=== PATIENT | female | born 1950 | race Caucasian/White ===

== ENCOUNTER 2023-02-01 17:24 | Emergency (ER) | payer OTHER, SELFPAY ==
[2023-02-01 17:51] VITALS: BP 151/65; PULSE 80; RESP 18; TEMP 36.9; O2SAT 96; BMI 39.0
--- NOTE | 2023-02-01 17:53 | ED.GENADULT ---
HPI - General Adult General Chief complaint: Wound/Laceration Stated complaint: bit tongue bleeding on blood thinners Time Seen by Provider: 02/01/23 18:54 Source: patient and family (Significant other) Mode of arrival: ambulatory Limitations: no limitations History of Present Illness HPI narrative: 73-year-old female on Eliquis for atrial fibrillation came in today for evaluation after biting the tip of her tongue while was eating accidentally, patient was bleeding since the morning. The bleeding appears to be stopped while she is in the emergency department. Patient declined any dizziness, CP, SOB, fever, chills or rectal bleed. Patient is up to date on her tetanus vaccine. Related Data Allergies Allergy/AdvReac Type Severity Reaction Status Date / Time Iodinated Contrast Media Allergy Unknown REDDNESS Unverified 05/23/20 14:54 [IV DYE, IODINE CONTAINING CONTRAST ] Penicillins Allergy Unknown RASH Unverified 05/23/20 14:54 Review of Systems Review of Systems: All other systems are reviewed and are negative Constitutional: Reports as per HPI and Reports no additional constitutional complaints Eyes: Reports as per HPI and Reports no additional eye complaints Reports system reviewed and no additional complaints, except as documented Cardiovascular: Reports as per HPI and Reports no additional cardiovascular complaints Respiratory: Reports as per HPI and Reports no additional respiratory complaints Gastrointestinal: Reports as per HPI and Reports no additional gastrointestinal complaints Genitourinary: Reports no additional female genitourinary complaints Musculoskeletal: Reports no additional musculoskeletal complaints Skin/Breast: Reports system reviewed and no additional complaints, except as docu Psychiatric: Reports no additional psychiatric complaints Endocrine: Reports no additional endocrine complaints Hematologic/Lymphatic: Reports no additional hematologic/lymphatic complaints Allergic/Immunologic: Reports no additional allergic/immunologic complaints Reports system reviewed and no additional complaints, except as documented and Reports Abnormal speech present [facility] Social History Social History Alcohol intake: never Smoked in Last 30 Days: No Use of substances other than those prescribed or required for medical reasons: No Advance Directives: No Advance Directives Information Provided: Yes Physical Exam ED Vital Signs: Vital Signs - 24 hr 02/01/23 17:51 02/01/23 19:45 Temperature 98.4 F Pulse Rate 80 64 Respiratory Rate 18 17 Blood Pressure 151/65 H 116/50 L Pulse Oximetry 96 95 Oxygen Delivery Method Room Air Room Air BMI result Body Mass Index 39.0 Vital signs have been reviewed as appeared to be correct. Blood pressure normal. Heart rate normal. Respiration rate normal. Temperature normal. Oxygen saturation normal. Appearance: Alert. Oriented X3. No acute distress. Head: Normal external exam. Normocephalic. Atraumatic. No Gooden signs noted. No raccoon eyes noted, tongue with less than 0.5 cm cut at the tip of the tongue, with blood clot, no active bleeding at the moment. Eyes: PERRLA. EOMI. Conjunctiva and sclera normal. Eyelids normal. ENT: TM's Normal. Pharynx normal. Uvula midline. Moist mucous membranes. No trismus noted. No drooling noted. No muffled voice noted. Neck: Normal inspection. Neck supple. FROM. No adenopathy. Thyroid Normal. No meningeal signs. No neck mass noted. CVS: Normal heart rate and rhythm. Heart sound normal. No murmurs noted. Pulses normal throughout. Respiratory: No respiratory distress. Painless inspiration. Breath sounds normal. No wheezes/rales/rhonchi noted. Chest nontender. No accessory muscle usage noted or decreased air movement noted. Abdomen: Soft and nontender. Bowel sounds normal in all 4 quadrants. No distention noted. No organomegaly noted. No visible injury noted. Back: No CVA tenderness. Full range of motion noted. Skin: Skin warm and dry. Normal skin color. Normal skin turgor. No rashes/lesions/lacerations noted. Extremities: No lower extremity edema. Extremities exhibit normal range of motion. Extremities nontender. Neuro: Oriented X 3. Cranial nerve exam: II-XII are grossly intact No motor deficit. No sensory deficit. Reflexes normal. Course Course Course Narrative: RME: 73 yold female on eliquis presents to the ED for bleeding from tip of tongue after bittting tongue by accident while eating. Bleeding has been continuos as per patient. Reevaluation(s) Reevaluation #1: Patient was observed in the emergency department for 3 hours has no active bleeding while she was in the emergency department, CBC/coags are unremarkable. I wanted to observe the patient more in the emergency department but patient is insisting to be discharged now. Time: 19:59 Medical Decision Making Differential Diagnosis Differential Diagnoses: The differential diagnosis associated with the presentation includes (Active bleeding from the laceration, hypocoagulability, severe anemia.) Admission/Observation Consideration of admission/observation: Escalation of care including admission/observation considered Lab Data MDM Lab Attestation statement: I reviewed the patient's lab results. 02/01/23 19:13 Labs: Lab Results 02/01/23 02/01/23 Range/Units 19:13 19:13 WBC 8.3 (4.8-10.8) X10*3/uL RBC 4.08 L (4.20-5.50) X10*6/uL Hgb 11.7 L (12.0-16.0) g/dl Hct 37.7 (37.0-47.0) % MCV 92.4 (80.0-98.0) fL MCH 28.7 (27.0-33.0) pg MCHC 31.0 (31.0-35.0) g/dl RDW 14.5 (11.0-16.0) % Plt Count 193 (160-400) X10*3/uL MPV 10.2 (9.4-12.3) fL Immature Gran % (Auto) 0.5 H (0.0-0.4) % Neut % (Auto) 65.9 (45-73) % Lymph % (Auto) 16.2 L (20-40) % [place] % (Auto) 14.6 H (2-11) % Eos % (Auto) 2.2 (0-4) % Baso % (Auto) 0.6 (0-2) % Lymph # (Auto) 1.3 (1.2-4.9) X10*3/uL [place] # (Auto) 1.2 (0.1-1.2) X10*3/uL Eos # (Auto) 0.2 (0.0-0.4) X10*3/uL Baso # (Auto) 0.1 (0.0-0.2) X10*3/uL Abs Immat Gran (auto) 0.04 H (0.00-0.03) X10*3/uL Absolute Neuts (auto) 5.4 (2.0-8.3) x10*3/uL Absolute Nucleated RBC 0.000 (0.0-0.012) X10*3/uL Nucleated RBC % (auto) 0.0 (0.0-0.2) /100WBC PT 16.0 H (10.0-13.1) SEC INR 1.4 H (0.9-1.1) APTT 35.3 (26.0-36.4) SEC Chronic Conditions Patient?s care impacted by: Other (On anticoagulation therapy) Discharge Plan Discharge Clinical Impression: Laceration of tongue Patient Disposition: Home, Self-Care Instructions: Laceration Without Closure (ED) Referrals: Angle Pinedo CNP [Primary Care Provider] - Interventions: ED Discharge Assessment Last Done: 02/01/23 20:06 Discharge Date/Time: 02/01/23 20:06
--- NOTE | 2023-02-01 19:10 | PC.NURSE ---
pt report that they bit tip of tongue at 1100 this morning. Pt on elaquis and has not stopped bleeding from swap[place]. Pt biting down on roll of gauze at the moment. Tech drawing coag labs. vitals stable, will cont to joaquín
--- NOTE | 2023-02-01 19:18 | PC.NURSE ---
checked gauze roll. hardly any blood was visible on roll. tongue is not visibly bleeding at this time
[2023-02-01 19:19] LABS: MANUAL DIFF FLAG NO
[2023-02-01 19:26] LABS: Basophils Absolute Auto 0.1 X10*3/uL (0.0-0.2); Basophils Percent Auto 0.6 % (0-2); Eosinophils Absolute Auto 0.2 X10*3/uL (0.0-0.4); Eosinophils Percent Auto 2.2 % (0-4); Hematocrit 37.7 % (37.0-47.0); Hemoglobin 11.7 g/dl (12.0-16.0); INTERNATIONAL NORM RATIO 1.4 (0.9-1.1); Imm Gran Abs Auto 0.04 X10*3/uL (0.00-0.03); Imm Gran Pct Auto 0.5 % (0.0-0.4); Lymphocytes Absolute Auto 1.3 X10*3/uL (1.2-4.9); Lymphocytes Percent Auto 16.2 % (20-40); Mean Corpuscular Hemoglobin 28.7 pg (27.0-33.0); Mean Corpuscular Volume 92.4 fL (80.0-98.0); Mean Platelet Volume 10.2 fL (9.4-12.3); Monocytes Absolute Auto 1.2 X10*3/uL (0.1-1.2); Monocytes Percent Auto 14.6 % (2-11); Neutrophils Absolute Auto 5.4 x10*3/uL (2.0-8.3); Neutrophils Percent Auto 65.9 % (45-73); Platelet Count 193 X10*3/uL (160-400); Red Blood Count 4.08 X10*6/uL (4.20-5.50); Red Cell Distribution Width 14.5 % (11.0-16.0); White Blood Count 8.3 X10*3/uL (4.8-10.8)
[2023-02-01 19:29] LABS: Partial Thromboplastin Time 35.3 SEC (26.0-36.4)
--- NOTE | 2023-02-01 19:39 | PC.NURSE ---
pt tongue remains not bleeding.
[2023-02-01 19:45] VITALS: BP 116/50; PULSE 64; RESP 17; O2SAT 95
== END 2023-02-01 20:06 | disposition home or self-care (01) ==
PROVIDERS: Emergency Provider Emergency Medicine; PCP Nurse Practitioner Family
DX: S01.512A Laceration without foreign body of oral cavity, initial encounter (principal); X58.XXXA Exposure to other specified factors, initial encounter; Y93.89 Activity, other specified; Y92.9 Unspecified place or not applicable; Y99.9 Unspecified external cause status; Z79.899 Other long term (current) drug therapy; Z79.01 Long term (current) use of anticoagulants
CPT/HCPCS: 36415; 85025; 85610; 85730; 99283; 99284

== ENCOUNTER 2024-05-25 15:57 | Observation (INO) | payer MEDICARE, SELFPAY ==
--- NOTE | ~2024-05-25 | CT_ITS ---
EXAMINATION: CT HEAD WITHOUT CONTRAST CLINICAL INFORMATION: Dizziness. Vision loss. COMPARISON: None available. TECHNIQUE: Contiguous axial imaging was performed from the skull base to vertex without intravenous administration of contrast. This CT examination was performed using dose optimization techniques as appropriate, variously including the following: *Automated exposure control *Adjustment of mA and/or kV according to patient size (this includes techniques or standardized protocols for targeted exams where dose is matched to indication/reason for exam; i.e. extremities or head) *Use of iterative reconstruction technique DLP: 541 mGy-cm FINDINGS: The lateral, third and fourth ventricles are normally outlined. The cortical sulci and basal cisterns are normally outlined as well. There is no acute territorial defects, hemorrhage or midline shift. The extra-axial spaces are unremarkable. Calvarium/scalp: Intact. Maxillofacial sinuses and mastoids: Clear as visualized. CT/CT head/brain wo IV con IMPRESSION: No acute intracranial pathology. Electronically signed by: Julius Gtz MD 05/26/2024 12:28 AM EDT
--- NOTE | ~2024-05-25 | US_ITS ---
EXAMINATION: US EXTRACRANIAL CAROTID DUPLEX, BILATERAL CLINICAL INFORMATION: TIA COMPARISON: None available. TECHNIQUE: Real-time ultrasound and Doppler techniques (integrating B-mode 2-D vascular images, Doppler spectral analysis and color-flow Doppler imaging) were utilized to interrogate the extracranial carotid arteries, the vertebral arteries and proximal subclavian arteries bilaterally. The degree of stenosis is determined by criteria similar to NASCET. FINDINGS: Right Side: 1. There is no atherosclerotic plaque seen in the bifurcation/proximal ICA region. 2. The common carotid artery PSV proximally is 114 cm/s and distally 107 cm/s. 3. The proximal internal carotid artery velocities are 74 cm/s systolic and 13 cm/s diastolic. 4. The proximal external carotid artery PSV is 116 cm/s. 5. The vertebral artery shows antegrade flow. 6. The subclavian artery waveforms are normal. Left Side: 1. There is mild atherosclerotic plaque seen in the bifurcation/proximal ICA region. 2. The common carotid artery PSV proximally is 118 cm/s and distally 4115 cm/s. 3. The proximal internal carotid artery velocities are 118 cm/s systolic and 26 cm/s diastolic. 4. The proximal external carotid artery PSV is 137 cm/s. 5. The vertebral artery shows antegrade flow. 6. The subclavian artery waveforms are normal. US/US carotid duplex BI IMPRESSION: 1. RIGHT: Normal right internal carotid artery without atherosclerotic plaque or hemodynamically significant stenosis. 2. LEFT: Minimal, non-hemodynamically significant stenosis of the proximal left internal carotid artery corresponding to a 0-49% stenosis by velocity criteria. Electronically signed by: Gabriella Hodgson MD 05/26/2024 02:37 PM EDT
--- NOTE | 2024-05-25 16:04 | ED_ITS ---
HPI - Eye Problem General Chief complaint: General Medical Stated complaint: loss of vision in left eye 05/24 ,fine today Time Seen by Provider: 05/25/24 23:23 Source: patient, RN notes reviewed and old records reviewed Mode of arrival: ambulatory Limitations: no limitations History of Present Illness ED Provider: Bret COPELAND Narrative: 74-year-old female with past medical history significant for chronic kidney disease, diabetes, TAVR on Eliquis, hypertension, hyperlipidemia presents for evaluation of vision loss. Patient reports that about 24 hours ago she had a sudden onset of complete vision loss in the left eye She was sitting down watching TV when this happened Patient reports that this lasted for about 10 minutes before completely resolving She saw her technical assistance consultant earlier today who diagnosed her with amaurosis fugax. Her technical assistance consultant recommend she come to the ER to be evaluated for ?mini- stroke. ? The patient complains of a mild left-sided headache Patient states that on 2 or 3 occasions over the last 2 weeks she has episodes of dizziness and ?almost passing out. ? Denies any weakness or difficulty speaking Related Data Home Medications ?Medication ?Instructions ?Recorded ?Confirmed apixaban 5 mg tablet (Eliquis) 5 mg PO BID 05/26/24 05/26/24 atorvastatin 40 mg tablet 40 mg PO Q OTHER DAY 05/26/24 05/26/24 dapagliflozin propanediol 10 mg 10 mg PO DAILY 05/26/24 05/26/24 tablet (Farxiga) glipizide 10 mg tablet, extended 20 mg PO DAILY 05/26/24 05/26/24 release 24 hr levothyroxine 100 mcg tablet 100 mcg PO DAILY 05/26/24 05/26/24 metoprolol succinate 50 mg 50 mg PO DAILY 05/26/24 05/26/24 tablet,extended release 24 hr spironolactone 50 mg tablet 50 mg PO DAILY 05/26/24 05/26/24 torsemide 20 mg tablet 40 mg PO BID 05/26/24 05/26/24 Allergies Allergy/AdvReac Type Severity Reaction Status Date / Time Iodinated Contrast Media Allergy Unknown REDDNESS Verified 05/25/24 16:10 [IV DYE, IODINE CONTAINING CONTRAST ] Penicillins Allergy Unknown RASH Verified 05/25/24 16:10 Review of Systems 2 Constitutional: Constitutional: Denies body ache(s), Denies chills, Denies fatigue, Denies fever(s), Denies frequent falls and Reports headache(s) Eyes: Eyes: Reports loss of vision (Resolved) ENT: Reports dizziness, Reports headache(s) and Denies disequilibrium Cardiovascular: Cardiovascular: Denies chest pain, Denies syncope and Denies dyspnea Respiratory: Respiratory: Denies cough and Denies dyspnea Gastrointestinal: Gastrointestinal: Denies abdominal pain, Denies nausea and Denies vomiting Musculoskeletal: Musculoskeletal: Denies back pain, Denies numbness and Denies tingling Integumentary/Breasts: Skin/Breast: Denies rash Neurologic: Reports dizziness, Denies syncope, Denies frequent falls, Reports headache(s), Denies focal weakness, Reports loss of vision (Resolved), Denies numbness, Denies tingling, Denies paresthesias and Denies disequilibrium Psychiatric: Psychiatric: Denies anxiety Endocrine: Endocrine: Denies fatigue PMFSH Social History Social History Alcohol intake: never Smoked in Last 30 Days: No Use of substances other than those prescribed or required for medical reasons: No Advance Directives: Yes Advance Directives Information Provided: No Advance Directives on File: No Do you have a plan to hurt others: No Plan Physical Exam 2 Vital Signs: Vital Signs: Last Vital Signs Temp 97.8 F 05/26/24 00:08 Pulse 69 05/26/24 00:08 Resp 18 05/26/24 00:08 BP 129/55 L 05/26/24 00:08 Pulse Ox 96 05/26/24 00:08 O2 Del Method Room Air 05/26/24 00:08 BMI result Body Mass Index 42.3 Const: General: healthy appearing, comfortable, no acute distress, alert and awake Nutritional Appearance: well nourished Orientation/consciousness: p atient oriented x3 HEENT: Head: Yes normocephalic and Yes atraumatic Eyes: Eyelids: Yes eyelids normal Conjunctivae: conjunctivae normal S clerae: sclerae normal Corneas: corneas normal Pupils: Equal, round and reactive pupils present EOM: EOMs intact bilaterally Neck: Neck: Yes full ROM Resp: Effort & Inspection: normal respiratory effort, able to speak in complete sentences and not labored Cardio: Rate: regular rate Rhythm: regular rhythm GI: Inspection: No distended Palpation (GI): Soft to palpation, not firm, nontender, no guarding and not rigid Skin: General skin exam: elasticity normal Neuro: General: patient oriented x3 Cranial nerves: Yes CN's II-XII intact bilaterally, Yes Equal, round and reactive pupils present and Yes Bilaterally intact EOM present Cognition (Neuro): normal cognition NIH Stroke Scale Time: 00:08 Level of Consciousness: Alert Level of Consciousness Questions: Answers both questions correctly Level of Consciousness Commands: Performs both tasks correctly Best Gaze: Normal Visual: No visual loss Facial Palsy: Normal Motor Arm (Right): No drift Motor Arm (Left): No drift Motor Leg (Right): No drift Motor Leg (Left): No drift Limb Ataxia: Absent Sensory: Normal Best Language: No aphasia Dysarthia: Normal Extinction and Inattention: No abnormality Score: 0 Course Course Course Narrative: This is a Rapid Medical Examination (RME) performed by Lynda Mann PA-C in triage. Full HPI, ROS, assessment and treatment plan per primary provider in the Main ED. 74-year-old female with history of TAVR, afib on Eliquis, HTN, who presents to the ER for evaluation of transient painless left sided vision loss that occurred yesterday and lasted about 10 minutes. Developed headache afterward. Patient was seen by an eye doctor today and diagnosed with amaurosis fugax. Goes to the chiropractor and had unsteady gait afterward, almost walked into the car 2 weeks ago. reports ongoing balance issues which is new. PCP told her to come in and r/o mini-stroke. Plan: pre-medicate for CTA head/neck, labs Medical Decision Making Medical Decision Making MDM Narrative: 74-year-old male with past medical history as documented above presents for evaluation of left-sided vision loss. This was over 24 hours ago. She saw her technical assistance consultant today who did a complete eye exam and found no structural abnormalities. At this time most likely diagnosis is a TIA as she currently has no deficits. I discussed with Neurology, Dr. Rosenthal who recommends no angiography at this time. He would like the patient admitted and he will evaluate the patient in the morning. I will get a dry CT scan of the brain to evaluate for large mass or large infarct/hemorrhage. The patient is already on Eliquis for her aortic valve repair Differential Diagnosis Differential Diagnoses: The differential diagnosis associated with the presentation includes Amaurosis fugax TIA CVA Acute headache Retinal detachment Consult Healthcare Provider Management of the patient was discussed with: Hospitalist and Medical Research Scientist Discussed with Neurology, Dr. Rosenthal. He recommends no angiography right now, he would like the patient admitted and he will evaluate the patient in the morning. Likely carotid ultrasound in the morning. Lab Data MDM Lab Attestation statement: I reviewed the patient's lab results. No leukocytosis or anemia. Normal platelet count. No significant electrolyte abnormalities. Patient's BUN and creatinine are elevated, her BUN is 66 and creatinine of 1.99 are consistent with her known diagnosis of stage IV kidney disease. Diabetic with a sugar glucose of 168. There is no evidence of DKA 05/25/24 16:21 05/25/24 16:21 Labs: Lab Results 05/25/24 Range/Units 16:21 WBC 6.6 (4.8-10.8) X10*3/uL RBC 4.52 (4.20-5.50) X10*6/uL Hgb 13.5 (12.0-16.0) g/dl Hct 42.5 (37.0-47.0) % MCV 94.0 (80.0-98.0) fL MCH 29.9 (27.0-33.0) pg MCHC 31.8 (31.0-35.0) g/dl RDW 14.7 (11.0-16.0) % Plt Count 165 (160-400) X10*3/uL MPV 10.0 (9.4-12.3) fL Immature Gran % (Auto) 0.3 (0.0-0.4) % Neut % (Auto) 65.3 (45-73) % Lymph % (Auto) 20.4 (20-40) % [place] % (Auto) 11.9 H (2-11) % Eos % (Auto) 1.5 (0-4) % Baso % (Auto) 0.6 (0-2) % Lymph # (Auto) 1.3 (1.2-4.9) X10*3/uL [place] # (Auto) 0.8 (0.1-1.2) X10*3/uL Eos # (Auto) 0.1 (0.0-0.4) X10*3/uL Baso # (Auto) 0.0 (0.0-0.2) X10*3/uL Abs Immat Gran (auto) 0.02 (0.00-0.03) X10*3/uL Absolute Neuts (auto) 4.3 (2.0-8.3) x10*3/uL Absolute Nucleated RBC 0.000 (0.0-0.012) X10*3/uL Nucleated RBC % (auto) 0.0 (0.0-0.2) /100WBC Sodium 142 (135-145) mmol/L Potassium 4.1 (3.3-5.1) mmol/L Chloride 103 (96-108) mmol/L Carbon Dioxide 30 H (22-29) mmol/L Anion Gap 13 (12-20) BUN 66 H (9-16) mg/dL Creatinine 1.99 H (0.5-1.4) mg/dL Estim Creat Clear Calc 26.3 Estimated GFR 24 Random Glucose 168 H (60-115) mg/dL Calcium 9.4 (8.4-10.2) mg/dL Magnesium 2.7 H (1.6-2.6) mg/dL Total Bilirubin 0.5 (0.0-1.0) mg/dL Direct Bilirubin 0.2 (0.0-0.5) mg/dL AST 20 (5-31) U/L ALT 15 (0-31) U/L Alkaline Phosphatase 135 H (39-117) U/L Total Protein 7.2 (6.5-8.0) g/dL Albumin 4.1 (3.5-5.0) g/dL Independent Interpretation I performed an independent interpretation of an: CT Scan Interpretation: Agree with Radiology interpretation, no acute intracranial pathology Radiology Impression Discussion of test interpretation with radiology: I have reviewed the radiologist's reading. Radiologist Impression: FINDINGS: The lateral, third and fourth ventricles are normally outlined. The cortical sulci and basal cisterns are normally outlined as well. There is no acute territorial defects, hemorrhage or midline shift. The extra-axial spaces are unremarkable. Calvarium/scalp: Intact. Maxillofacial sinuses and mastoids: Clear as visualized. CT/CT head/brain wo IV con IMPRESSION: No acute intracranial pathology. Discharge Plan Discharge Clinical Impression: Brain TIA, Amaurosis fugax Patient Disposition: Still a Patient Prescriptions: No Action atorvastatin 40 mg tablet 40 mg PO Q OTHER DAY torsemide 20 mg tablet 40 mg PO BID metoprolol succinate 50 mg tablet extended release 24 hr 50 mg PO DAILY glipizide 10 mg tablet extended release 24hr 20 mg PO DAILY levothyroxine 100 mcg tablet 100 mcg PO DAILY spironolactone 50 mg tablet 50 mg PO DAILY Eliquis 5 mg tablet 5 mg PO BID dapagliflozin propanediol [Farxiga] 10 mg tablet 10 mg PO DAILY Print Language: Khmer
[2024-05-25 16:06] VITALS: BP 132/57; PULSE 83; RESP 16; TEMP 36.1; O2SAT 93; BMI 42.3
--- NOTE | 2024-05-25 16:10 | ECG_ITS ---
Test Reason : BLURRY VISION Blood Pressure : / mmHG Vent. Rate : 080 BPM Atrial Rate : 080 BPM P-R Int : 322 ms QRS Dur : 134 ms QT Int : 428 ms P-R-T Axes : 037 035 -04 degrees QTc Int : 493 ms Atrial-paced rhythm with prolonged AV conduction Premature ventricular complexes Right bundle branch block Abnormal ECG When compared with ECG of 16-FEB-2012 11:22, Electronic atrial pacemaker has replaced Sinus rhythm T wave inversion now evident in Anterior leads Referred By: Tori Mann Electronically Signed By:RADHAMES MÁRQUEZ
[2024-05-25 16:26] LABS: MANUAL DIFF FLAG NO
[2024-05-25 16:31] LABS: Basophils Percent Auto 0.6 % (0-2); Eosinophils Absolute Auto 0.1 X10*3/uL (0.0-0.4); Eosinophils Percent Auto 1.5 % (0-4); Hematocrit 42.5 % (37.0-47.0); Hemoglobin 13.5 g/dl (12.0-16.0); Imm Gran Abs Auto 0.02 X10*3/uL (0.00-0.03); Imm Gran Pct Auto 0.3 % (0.0-0.4); Lymphocytes Absolute Auto 1.3 X10*3/uL (1.2-4.9); Lymphocytes Percent Auto 20.4 % (20-40); Mean Corpuscular HGB Conc 31.8 g/dl (31.0-35.0); Mean Corpuscular Hemoglobin 29.9 pg (27.0-33.0); Monocytes Absolute Auto 0.8 X10*3/uL (0.1-1.2); Monocytes Percent Auto 11.9 % (2-11); Neutrophils Absolute Auto 4.3 x10*3/uL (2.0-8.3); Neutrophils Percent Auto 65.3 % (45-73); Platelet Count 165 X10*3/uL (160-400); Red Blood Count 4.52 X10*6/uL (4.20-5.50); Red Cell Distribution Width 14.7 % (11.0-16.0); White Blood Count 6.6 X10*3/uL (4.8-10.8)
[2024-05-25 16:45] LABS: Alanine Aminotransferase 15 U/L (0-31); Albumin Level 4.1 g/dL (3.5-5.0); Alkaline Phosphatase 135 U/L (39-117); Anion Gap 13 (12-20); Aspartate Amino Transferase 20 U/L (5-31); Bilirubin Direct 0.2 mg/dL (0.0-0.5); Bilirubin Total 0.5 mg/dL (0.0-1.0); Blood Urea Nitrogen 66 mg/dL (9-16); Calcium 9.4 mg/dL (8.4-10.2); Carbon Dioxide 30 mmol/L (22-29); Chloride 103 mmol/L (96-108); Creatinine Clr Calc Pharmacy 26.3; Estimated Glomerular Filt Rate 24; Glucose Random 168 mg/dL (60-115); Magnesium 2.7 mg/dL (1.6-2.6); Potassium 4.1 mmol/L (3.3-5.1); Sodium 142 mmol/L (135-145); Total Protein 7.2 g/dL (6.5-8.0)
[2024-05-25 23:14] VITALS: BP 144/54; PULSE 70; RESP 20; TEMP 36.7; O2SAT 93
[2024-05-26 00:08] VITALS: BP 129/55; PULSE 69; RESP 18; TEMP 36.6; O2SAT 96
[2024-05-26 02:42] VITALS: BP 132/68; PULSE 72
[2024-05-26] MEDS: Metoprolol Succinate ER 50 MG TAB.ER.24H PO (02:42)
[2024-05-26] MEDS: Atorvastatin Calcium 40 MG TABLET PO (02:42)
[2024-05-26] MEDS: Apixaban 5 MG TABLET PO ×2 (02:42→08:46)
[2024-05-26] MEDS: Acetaminophen 325 MG TABLET 975 MG PO (03:00)
--- NOTE | 2024-05-26 03:42 | P.HPHOSP_ITS ---
History of Present Illness Date of Service: 05/26/24 Attending physician on admission: Lindsey Watts Chief Complaint: Left eye visual loss Natalia Cook is a very pleasant 74 years old woman past medical history significant for atrial fibrillation on Eliquis, hyperlipidemia,, CKD stage 4, permanent pacemaker implantation, CHF, obstructive sleep apnea (not tolerating CPAP), type 2 diabetes mellitus, essential hypertension and hypothyroidism presents to the emergency department complaining of sudden onset of vision loss to the left eye associated with headache. The visual loss was complete and she described as a curtain is falling down in front of her eye. She denied left eye pain, nausea, vomiting or fever, chills, palpitations or loss of consciousness.. She denied any focal weakness, speech difficulty, facial droop or numbness. She did not report any gait difficulty. She mentioned that she has been experiencing events of dizziness and feeling off balance. She has had 2 episodes of dizziness. The 1st episode happened after visiting her chiropractor Did not report any acute cardiopulmonary, gastrointestinal or genitourinary symptoms. She was seen yesterday by her hotel supplies salesperson and was told that her eyes exam was essentially normal. In the ED, she was found to have normal vital signs. Blood workup including CBC and CMP are basically unremarkable (renal function is affected by consistent with CKD stage 4). Head CT scan without contrast showed no acute intracranial abnormalities. ECG showed atrial paced rhythm with prolonged AV conduction. ED tx: Metoprolol XL 50 mg PO X1 Review of Systems 2 Review of Systems: All 12 systems were reviewed and normal except as noted in HPI. [facility] Medical History (Updated 05/26/24 @ 06:13 by Lindsey Watts MD) CKD (chronic kidney disease), stage IV Obstructive sleep apnea CHF (congestive heart failure) Essential hypertension Hypothyroidism Hyperlipidemia Morbid obesity Type 2 diabetes mellitus Atrial fibrillation Surgical History (Updated 05/26/24 @ 06:11 by Lindsey Watts MD) History of permanent cardiac pacemaker placement Social History Alcohol intake: never Patient Tobacco Use Status: Never used Tobacco Advance Directives Date on File: 05/26/24 Meds Allergies Allergy/AdvReac Type Severity Reaction Status Date / Time Iodinated Contrast Media Allergy Unknown REDDNESS Verified 05/25/24 16:10 [IV DYE, IODINE CONTAINING CONTRAST ] Penicillins Allergy Unknown RASH Verified 05/25/24 16:10 Active Medications: Current Medications Acetaminophen (Acetaminophen 325 Mg Tablet) 975 mg PO Q6H PRN PRN Reason: Pain, Mild (Pain Scale 1-3), fever or headache Apixaban (Apixaban 5 Mg Tablet) 5 mg PO BID [facility] Last Admin: 05/26/24 02:42 Dose: 5 mg Atorvastatin Calcium (Atorvastatin Calcium 40 Mg Tablet) 40 mg PO Q48H [facility] Last Admin: 05/26/24 02:42 Dose: 40 mg Glipizide (Glipizide Xl 10 Mg Tab.Er.24) 20 mg PO DAILY [facility] Levothyroxine Sodium (Levothyroxine Sodium 100 Mcg Tablet) 100 mcg PO 0630 [facility] Metoprolol Succinate (Metoprolol Succinate Er 50 Mg Tab.Er.24h) 50 mg PO 0700 [facility]; Protocol Non-Formulary Medication (Dapagliflozin Propanediol [Farxiga]) 10 mg PO DAILY [facility] Sodium Chloride (0.9 % Sodium Chloride Flush 3 Ml Syringe) 3 ml IVFLUSH QSHIFT [facility] Spironolactone (Spironolactone 25 Mg Tablet) 50 mg PO DAILY [facility]; Protocol Torsemide (Torsemide 20 Mg Tablet) 40 mg PO BID [facility]; Protocol Last Admin: 05/26/24 02:43 Dose: Not Given Home Medications ?Medication ?Instructions ?Recorded ?Confirmed ?Last Taken ?Type apixaban 5 mg tablet (Eliquis) 5 mg PO BID 05/26/24 05/26/24 05/25/24 History atorvastatin 40 mg tablet 40 mg PO Q OTHER DAY 05/26/24 05/26/24 05/24/24 History dapagliflozin propanediol 10 mg 10 mg PO DAILY 05/26/24 05/26/24 05/24/24 History tablet (Farxiga) glipizide 10 mg tablet, extended 20 mg PO DAILY 05/26/24 05/26/24 05/24/24 History release 24 hr levothyroxine 100 mcg tablet 100 mcg PO DAILY 05/26/24 05/26/24 05/25/24 History metoprolol succinate 50 mg 50 mg PO DAILY 05/26/24 05/26/24 05/24/24 History tablet,extended release 24 hr spironolactone 50 mg tablet 50 mg PO DAILY 05/26/24 05/26/24 05/24/24 History torsemide 20 mg tablet 40 mg PO BID 05/26/24 05/26/24 05/24/24 History Physical Exam 2 Vital Signs and Narrative: Vital Signs: Last Vital Signs Temp 97.8 F 05/26/24 00:08 Pulse 72 05/26/24 02:42 Resp 18 05/26/24 00:08 BP 132/68 05/26/24 02:42 Pulse Ox 96 05/26/24 00:08 O2 Del Method Room Air 05/26/24 00:08 BMI result Body Mass Index 42.3 Constitutional - Awake and Alert, No apparent distress. Pleasant. Cooperative. HEENT - PERRLA, EOMI Heart - S1S2, RRR, No edema Lungs - Normal lung expansion, Normal respiratory effort, No respiratory distress, CTA bilaterally Abdomen - Nontender. Extremities - no calf tenderness bilaterally, no swelling Musculoskeletal - Normal inspection, normal ROM Skin - Warm/Dry Neurological - Alert & oriented x3, CN III-XII in tact, 5/5 strength BUE and BLE Psychological - Appropriate affect Results Labs 05/25/24 16:21 05/25/24 16:21 Labs: Laboratory Results - last 24 hr 05/25/24 16:21 MCV 94.0 MCH 29.9 MCHC 31.8 RDW 14.7 Plt Count 165 MPV 10.0 Immature Gran % (Auto) 0.3 Neut % (Auto) 65.3 Lymph % (Auto) 20.4 [place] % (Auto) 11.9 H Eos % (Auto) 1.5 Baso % (Auto) 0.6 Lymph # (Auto) 1.3 [place] # (Auto) 0.8 Eos # (Auto) 0.1 Baso # (Auto) 0.0 Abs Immat Gran (auto) 0.02 Absolute Neuts (auto) 4.3 Absolute Nucleated RBC 0.000 Nucleated RBC % (auto) 0.0 Anion Gap 13 Estim Creat Clear Calc 26.3 Estimated GFR 24 Random Glucose 168 H Calcium 9.4 Magnesium 2.7 H Total Bilirubin 0.5 Direct Bilirubin 0.2 AST 20 ALT 15 Alkaline Phosphatase 135 H Total Protein 7.2 Albumin 4.1 Imaging Radiologist's Impressions: Impressions Head CT 05/25/24 23:54 IMPRESSION: No acute intracranial pathology. Electronically signed by: Julius Gtz MD 05/26/2024 12:28 AM EDT RP Assessment and Plan (1) Amaurosis fugax: Status: Acute Plan Natalia Cook is a 74 y/o woman admitted with: * Left eye vision loss, resolved. Likely Amaursos fugax (pt describes it as a curtain descending over the field of vision). Observation. Check CRP. Check carotid US and TTE. Brain MRI unable to obtain as the patient has PPM. Neurology consult. * Type 2 diabetes mellitus. BG checks before meals at bedtime. Continue glipizide and Farxiga (or alternative). Insulin sliding scale. Diabetic diet. * Atrial fibrillation, currently rhythm rate controlled. Continue metoprolol and Eliquis. * Hyperlipidemia. Continue statin. * Hypothyroidism. Continue levothyroxine. * Essential hypertension. Continue metoprolol, spironolactone and torsemide. * CHF. Continue torsemide and metoprolol. * CKD stage 4. Continue to monitor renal function. * SOPHIA. Not tolerating CPAP. * PPM. * Morbid obesity/class 3. BMI 42.3 kg/m2. Weight loss. Quality Stroke Does the patient have a stroke diagnosis?: No VTE Prior VTE?: No VTE Risk Level:: Medical - moderate - high VTE Device Contraindication: Treatment Not Indicated VTE Drug Contraindication: Treatment Not Indicated
[2024-05-26 04:45] LABS: Appearance Urine Clear; Color Urine Yellow; Glucose Urine UA >=1000 mg/dL (Negative); Leukocyte Esterase Urine Negative (Negative); Nitrite Urine Negative (Negative); PH 5.5 (5.0-9.0); Specific Gravity - Urine 1.015 (1.005-1.025); UMIC TRIGGER UACC YES; Urine Blood Negative (Negative); Urine Ketones Negative (Negative); Urine Protein Negative (Neg-Trace)
[2024-05-26 04:47] VITALS: BMI 41.7
[2024-05-26 04:49] LABS: Bacteria Urine None Seen (None Seen); Hyaline Casts Urine 0-2 /LPF (0-2); RBC Urine 0-2 /HPF (0-2); Squamous Epithelial Cell Urine 0-2 /HPF (0-2); WBC Urine 0-5 /HPF (0-5)
[2024-05-26 04:57] VITALS: BP 130/62; PULSE 71; RESP 16; TEMP 36.6; O2SAT 95
[2024-05-26] MEDS: Levothyroxine Sodium 100 MCG TABLET PO (05:10)
[2024-05-26 06:26] LABS: C Reactive Protein 0.54 mg/dL (< or = 0.50)
--- NOTE | 2024-05-26 07:00 | CA_ITS ---
Transthoracic Echocardiogram Patient (Last, First, Middle): Natalia Cook, Gender: Female Date of : 1950 Age: 74 Procedure Date: 05/26/2024 Procedure Type: Transthoracic Echocardiogram Location: S3E Height: 154.94 cm Weight: 99.79 kg BSA: 1.97 m2 Heart Rate: bpm BP: 134 / 58 mmHg Lead Radiologic Technologist: Referring MD: Lindsey Watts MD Associate Marketing Manager: Luis Michelle MD Symptoms: TIA Study Quality: Adequate w contrast ECG Rhythm: Sinus Conclusions: - 1. Normal LV ejection fraction 55-60% with mild LVH with grade 2 diastolic dysfunction 2. Moderately dilated right-sided chambers with preserved RV systolic function 3. Normally function bioprosthetic aortic valve with mean gradient of 10 mmHg 4. Moderate to moderately severe tricuspid regurgitation 5. Moderately elevated right ventricular systolic pressure with significantly elevated right atrial pressures 6. No gross pericardial effusion Findings Procedure Information Contrast agent, definity, is being given per protocol without apparent complications. Left Ventricle Normal left ventricular size and systolic function. There is mildly increased left ventricular wall thickness. The visually estimated ejection fraction is between 55-60%. Spectral Doppler is indicative of a pseudonormal filling pattern. E/E prime ratio is >15, consistent with elevated filling pressures. Evidence suggests grade II (moderate) diastolic dysfunction. Right Ventricle Moderately increased right ventricular cavity size. There is normal right ventricular systolic function. There is a pacemaker wire seen in the right ventricle. Atria The left atrium is mildly dilated. There is no evidence of interatrial shunt. The right atrium is moderately dilated. A pacemaker wire is identified in the right atrium. Aortic Valve A bioprosthetic aortic valve is present. The prosthetic aortic valve appears to be functioning normally. The mean gradient is 10 mmHg. There is no aortic valve regurgitation. Mitral Valve There is mild anterior and moderate posterior mitral leaflet thickening. There is moderate mitral annular calcification. There is trace mitral valve regurgitation. There is no mitral valve stenosis. Pulmonic Valve The pulmonic valve is likely normal. Tricuspid Valve Normal tricuspid valve structure. There is moderate to severe tricuspid valve regurgitation. Significantly elevated right atrial pressure. Moderate pulmonary hypertension is present. Great Vessels The aorta was not well visualized. The pulmonary artery was not well visualized. There is no dilatation of the ascending aorta measuring 2.80 cm. Venous The inferior vena cava is moderately dilated and does not collapse with inspiration. Pericardium/Pleural There is no evidence of pericardial effusion. Prior Study Comparison No prior study available for comparison. Measurements 2D Linear Measurements IVSd: 1.22 0.6-0.9/0.6-1.0 cm LVIDd: 4.41 3.9-5.3/4.2-5.9 cm LVIDd Index: 2.24 2.4-3.2/2.2-3.1 cm/m2 LVIDs: 2.79 2.0-3.6 cm LVPWd: 1.20 0.7-1.1 cm Ao Root: 2.20 2.1-3.5 cm LA Diam: 5.10 2.7-3.8/3.0-4.0 cm LAIDs Index: 2.59 1.5-2.3 cm/m2 LV Mass: 242.16 67-162/88-224 g LV Mass Index: 122.92 43-95/49-115 g/m2 LVOT Diam: 2.00 3.0+(-)1.3 cm Mitral Valve MV VTI: 0.51 MV Pk Jadon: 1.39 MV Mn Jadon: 0.67 MV Pk Grad: 8.00 MV Mn Grad: 2.00 MV Pk E: 1.34 MV PK A: 0.79 MV Decel Time: 217.00 E/A: 1.70 E'Lateral: 10.00 E'Medial: 5.55 E/E' Med: 24.10 E/E' Lat: 13.40 PHT: 63.00 MVA PHT: 3.49 MVA Continuity: 1.62 Decel Griggs: 6.18 Aortic Valve AoV Pk Jadon: 2.26 AoV Mn Jadon: 1.49 AoV VTI: 0.50 AoV Pk Grad: 20.00 Aov Mn Grad: 10.00 AIXA Cont.VTI: 1.66 LVOT LVOT Pk Jadon: 1.04 LVOT Mn Jadon: 0.67 LVOT VTI: 0.27 LVOT Pk Grad: 4.00 LVOT Mn Grad: 2.00 LVOT Diam: 2.00 LVOT Area: 3.14 Diastolic Function MV Pk E: 1.34 MV Pk A: 0.79 E/A: 1.70 E'Medial: 5.55 E/E' Med: 24.10 E' Laterial: 10.00 E/E' Lat: 13.40 Right Ventricle TAPSE (mm): 21.70 TVS' Jadon: 8.70 Tricuspid Valve TR Pk Jadon: 3.22 TR Pk Grad: 41.00 RA Press: 15.00 RVSP: 56.00 Great Vessels Aorta Ao Root-2D: 2.20 2.0-3.7 cm Ao Asc: 2.80 2.1-3.4 cm Pulmonary Valve PV Pk Jadon: 1.16 Peak PV Grad: 5.00 Updated in Other Vendor System with Status of Final Luis Michelle MD electronically signed on 05/26/2024 2:10:14 PM with status of Final
[2024-05-26 07:24] VITALS: BP 134/58; PULSE 65; RESP 18; TEMP 36.5; O2SAT 95
[2024-05-26 07:37] LABS: Glucose, Whole Blood 77 mg/dL (60-115)
--- NOTE | 2024-05-26 08:37 | MHC.STROKE ---
Spoke with Echo James RN who provided care to Natalia on the overnight shift. Pt tolerated swallow screen and had no issues with swallowing prior to the administration of her medication.
[2024-05-26] MEDS: Spironolactone 25 MG TABLET 50 MG PO (08:45)
[2024-05-26] MEDS: Torsemide 20 MG TABLET 40 MG PO (08:46)
[2024-05-26] MEDS: 0.9 % Sodium Chloride Flush 3 ML SYRINGE IVFLUSH ×2 (08:47→16:24)
--- NOTE | 2024-05-26 09:19 | PHA.MEDREC ---
Addendum entered by Alberto Mares 05/26/24 09:31: Checked by [facility] Original Note: Pharmacy Consult ? Medication Reconciliation Pharmacy has reviewed the medication reconciliation done by nurse. Spoke to patient to confirm med list.
--- NOTE | 2024-05-26 09:55 | P.CNNE_ITS ---
History of Present Illness Data of Consult Service Date: 05/26/24 Primary Care Provider: Unknown Physician HPI Reason for consult: Sudden transient loss of vision This is a 74 years old woman with h/o atrial fibrillation on Eliquis, hyperlipidemia,, CKD stage 4, permanent pacemaker implantation, CHF, obstructive sleep apnea (not tolerating CPAP), type 2 diabetes mellitus, essential hypertension and hypothyroidism, who presented to the emergency department complaining of sudden onset of vision loss to the left eye associated with headache. The visual loss was complete and she described as a curtain is falling down in front of her eye. It recovered gradually with some lines in the vision first division lifting to about half the visual field and then entirely in over 10-12 min. She denied left eye pain, nausea, vomiting or fever, chills, palpitations or loss of consciousness.. She denied any focal weakness, speech difficulty, facial droop or numbness. She did not report any gait difficulty. She mentioned that she has been experiencing events of dizziness and feeling off balance. She has had 2 episodes of dizziness. The 1st episode happened after visiting her chiropractor Did not report any acute cardiopulmonary, gastrointestinal or genitourinary symptoms. She was seen yesterday by her peoplesoft hr developer and was told that her eyes exam was essentially normal. The loss of vision lasted approximately 10 min. and is followed by a bad headache in the eyes some left facial numbness. There is no previous history of migraine or visual disturbance PMFSH Past Medical History Medical History (Updated 05/26/24 @ 06:13 by Lindsey Watts MD) CKD (chronic kidney disease), stage IV Obstructive sleep apnea CHF (congestive heart failure) Essential hypertension Hypothyroidism Hyperlipidemia Morbid obesity Type 2 diabetes mellitus Atrial fibrillation Surgical History Surgical History (Updated 05/26/24 @ 06:11 by Lindsey Watts MD) History of permanent cardiac pacemaker placement Social History Social History Alcohol intake: never Patient Tobacco Use Status: Never used Tobacco Smoked in Last 30 Days: No Use of substances other than those prescribed or required for medical reasons: No Currently Displaying Signs/Symptoms of Drug Intoxication Withdrawal: No Advance Directives: Yes Advance Directives Information Provided: No Advance Directives on File: No Advance Directives Date on File: 05/26/24 Do you have a plan to hurt others: No Plan Nutrition Risks: No Nutritional Risk Meds Allergies Allergy/AdvReac Type Severity Reaction Status Date / Time Iodinated Contrast Media Allergy Unknown REDDNESS Verified 05/25/24 16:10 [IV DYE, IODINE CONTAINING CONTRAST ] Penicillins Allergy Unknown RASH Verified 05/25/24 16:10 Active Medications: Current Medications Acetaminophen (Acetaminophen 325 Mg Tablet) 975 mg PO Q6H PRN PRN Reason: Pain, Mild (Pain Scale 1-3), fever or headache Apixaban (Apixaban 5 Mg Tablet) 5 mg PO BID [facility] Last Admin: 05/26/24 08:46 Dose: 5 mg Atorvastatin Calcium (Atorvastatin Calcium 40 Mg Tablet) 40 mg PO Q48H [facility] Last Admin: 05/26/24 02:42 Dose: 40 mg Glucose (Glucose Gel 15 Gm Gel..Gram.) 15 gm PO Q15M PRN; Protocol PRN Reason: per Hypoglycemia Standing Ord. Dextrose (D10) 250 mls @ 750 mls/hr IV Q15M PRN; Protocol PRN Reason: per Hypoglycemia Standing Ord. Insulin Human Lispro (Insulin Lispro 100 Unit/Ml 3 Ml Vial) 0 unit SUBCUT QIDACHS [facility]; Protocol Last Admin: 05/26/24 08:03 Dose: Not Given Levothyroxine Sodium (Levothyroxine Sodium 100 Mcg Tablet) 100 mcg PO 0630 [facility] Last Admin: 05/26/24 05:10 Dose: 100 mcg Metoprolol Succinate (Metoprolol Succinate Er 50 Mg Tab.Er.24h) 50 mg PO 0700 [facility]; Protocol Non-Formulary Medication (Dapagliflozin Propanediol [Farxiga]) 10 mg PO DAILY [facility] Sodium Chloride (0.9 % Sodium Chloride Flush 3 Ml Syringe) 3 ml IVFLUSH QSHIFT [facility] Last Admin: 05/26/24 08:47 Dose: 3 ml Spironolactone (Spironolactone 25 Mg Tablet) 50 mg PO DAILY [facility]; Protocol Last Admin: 05/26/24 08:45 Dose: 50 mg Torsemide (Torsemide 20 Mg Tablet) 40 mg PO BID [facility]; Protocol Last Admin: 05/26/24 08:46 Dose: 40 mg Home Medications ?Medication ?Instructions ?Recorded ?Confirmed ?Last Taken ?Type acetaminophen 500 mg tablet 500 mg PO BEDTIME 05/26/24 05/26/24 05/24/24 History acetaminophen 650 mg 650 mg PO DAILY 05/26/24 05/26/24 05/24/24 History tablet,extended release apixaban 5 mg tablet (Eliquis) 5 mg PO BID 05/26/24 05/26/24 05/25/24 History atorvastatin 40 mg tablet 40 mg PO Q48H 05/26/24 05/26/24 05/24/24 History budesonide 180 mcg/actuation 2 inh inhalation BID 05/26/24 05/26/24 Unknown History breath activated powder inhaler (Pulmicort Flexhaler) dapagliflozin propanediol 10 mg 10 mg PO DAILY 05/26/24 05/26/24 05/24/24 History tablet (Farxiga) glipizide 10 mg tablet, extended 20 mg PO DAILY 05/26/24 05/26/24 05/24/24 History release 24 hr levothyroxine 100 mcg tablet 100 mcg PO DAILY@0600 05/26/24 05/26/24 05/25/24 History metoprolol succinate 50 mg 50 mg PO DAILY 05/26/24 05/26/24 05/24/24 History tablet,extended release 24 hr spironolactone 50 mg tablet 50 mg PO DAILY 05/26/24 05/26/24 05/24/24 History torsemide 20 mg tablet 40 mg PO BID 05/26/24 05/26/24 05/24/24 History Physical Exam 2 Vital Signs: Vital Signs: Last Vital Signs Temp 97.7 F 05/26/24 07:24 Pulse 65 05/26/24 07:24 Resp 18 05/26/24 07:24 BP 134/58 L 05/26/24 07:24 Pulse Ox 95 05/26/24 07:24 O2 Del Method Room Air 05/26/24 07:24 BMI result Body Mass Index 41.7 Neuro: Other: Normal neurological examination Results Labs 05/25/24 16:21 05/25/24 16:21 Labs: Short CBC 05/25/24 Range/Units 16:21 WBC 6.6 (4.8-10.8) X10*3/uL Hgb 13.5 (12.0-16.0) g/dl Hct 42.5 (37.0-47.0) % Plt Count 165 (160-400) X10*3/uL BMP 05/25/24 16:21 Sodium 142 Potassium 4.1 Chloride 103 Carbon Dioxide 30 H BUN 66 H Creatinine 1.99 H Calcium 9.4 Liver Function 05/25/24 Range/Units 16:21 Total Bilirubin 0.5 (0.0-1.0) mg/dL Direct Bilirubin 0.2 (0.0-0.5) mg/dL AST 20 (5-31) U/L ALT 15 (0-31) U/L Alkaline Phosphatase 135 H (39-117) U/L Albumin 4.1 (3.5-5.0) g/dL Urine 05/26/24 Range/Units 04:39 Urine Color Yellow Urine Appearance Clear Urine pH 5.5 (5.0-9.0) Ur Specific [place] 1.015 (1.005-1.025) Urine Protein Negative (Neg-Trace) mg/dL Urine Glucose (UA) >=1000 H (Negative) mg/dL Assessment and Plan (1) Amaurosis fugax: Status: Acute Transient monocular blindness left eye, most likely due to an embolus in the ophthalmic artery. Less likely to be a migraine phenomena. Rule out temporal arteritis Recommendation: Check sedimentation rate. Add aspirin 81 mg every other day to her regimen of Eliquis bid Procedures Date of Service Date of Service: 05/26/24
--- NOTE | 2024-05-26 10:33 | MHC.CM.PN ---
pt lives with her partner has her own ride home is not expected to need servies when dcd dc plan home no servies
[2024-05-26 11:32] LABS: Glucose, Whole Blood 156 mg/dL (60-115)
[2024-05-26] MEDS: Insulin Lispro 100 UNIT/ML 3 ML VIAL SUBCUT (11:46)
[2024-05-26 11:51] VITALS: BP 129/60; PULSE 66; RESP 16; TEMP 36.1; O2SAT 96
[2024-05-26 15:17] VITALS: BP 143/62; PULSE 62; RESP 20; TEMP 36.1; O2SAT 96
[2024-05-26 16:11] LABS: Glucose, Whole Blood 90 mg/dL (60-115)
--- NOTE | 2024-05-26 16:25 | P.DS_ITS ---
DS: Providers Provider Date of Service: 05/26/24 Date of admission: 05/26/24 03:28 Date of discharge: 05/26/24 Primary care physician: Unknown Physician Consults: 05/26/24 03:31 Consult to Neurology Routine Consulting Provider: [facility] Reason for consultation: Left eye vision loss Has provider been notified: Yes Attending physician on discharge: Kulwant Felipe Discharging clinician: Valarie Mosher DS: Diagnosis Discharge Diagnosis (1) Amaurosis fugax: Status: Acute DS: Summary Hospital Course Hospital Course: From H&P on the day of admission Natalia Cook is a very pleasant 74 years old woman past medical history significant for atrial fibrillation on Eliquis, hyperlipidemia,, CKD stage 4, permanent pacemaker implantation, CHF, obstructive sleep apnea (not tolerating CPAP), type 2 diabetes mellitus, essential hypertension and hypothyroidism presents to the emergency department complaining of sudden onset of vision loss to the left eye associated with headache. The visual loss was complete and she described as a curtain is falling down in front of her eye. She denied left eye pain, nausea, vomiting or fever, chills, palpitations or loss of consciousness.. She denied any focal weakness, speech difficulty, facial droop or numbness. She did not report any gait difficulty. She mentioned that she has been experiencing events of dizziness and feeling off balance. She has had 2 episodes of dizziness. The 1st episode happened after visiting her chiropractor Did not report any acute cardiopulmonary, gastrointestinal or genitourinary symptoms. She was seen yesterday by her insurance underwriting assistant and was told that her eyes exam was essentially normal. In the ED, she was found to have normal vital signs. Blood workup including CBC and CMP are basically unremarkable (renal function is affected by consistent with CKD stage 4). Head CT scan without contrast showed no acute intracranial abnormalities. ECG showed atrial paced rhythm with prolonged AV conduction. ED tx: Metoprolol XL 50 mg PO X1 Left sided vision loss. 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 Less likely to be a migraine phenomena. No residual neurological deficits. ESR was checked and was normal. Echocardiogram showed normally functioning bioprosthetic aortic valve, moderate to severe tricuspid regurgitation. Carotid ultrasound with minimal, non hemodynamically significant stenosis of the proximal left internal carotid artery corresponding to 0-49% stenosis and normal right internal carotid artery without atherosclerotic plaque or hemodynamically significant stenosis. Neurology recommended to add baby aspirin every other day. Recommend outpatient follow-up with PCP, tight control of blood sugar. Continue statin. Time Attestation Discharge Coordination Time (in mins): 35 Quality: Safe Use of Opioids Does Pt have an Active Cancer Diagnosis on the Problem List?: No Quality: Stroke Does the patient have a stroke diagnosis?: No Physical Exam Vital Signs: Vital Signs: Last Vital Signs Temp 97 F 05/26/24 15:17 Pulse 62 05/26/24 15:17 Resp 20 05/26/24 15:17 BP 143/62 H 05/26/24 15:17 Pulse Ox 96 05/26/24 15:17 O2 Del Method Room Air 05/26/24 15:17 BMI result Body Mass Index 41.7 Const: General: cooperative, comfortable, no acute distress, alert and awake Nutritional Appearance: average body habitus Orientation/consciousness: patient oriented x3 Resp: Effort & Inspection: normal respiratory effort, able to speak in complete sentences, no respiratory distress and no use of accessory muscles Auscultation: clear to auscultation bilaterally Cardio: Rate: regular rate GI: Inspection: No distended Palpation (GI): Soft to palpation and nontender Neuro: General: patient oriented x3, moves all extremities and CN's II-XI intact bilaterally Extrem: General: Yes no pedal edema DS: Data Data Completed and Pending Labs on day of discharge: Laboratory Results - last 24 hr 05/25/24 05/26/24 05/26/24 16:21 04:39 07:22 WBC 6.6 RBC 4.52 Hgb 13.5 Hct 42.5 MCV 94.0 MCH 29.9 MCHC 31.8 RDW 14.7 Plt Count 165 MPV 10.0 Immature Gran % (Auto) 0.3 Neut % (Auto) 65.3 Lymph % (Auto) 20.4 [place] % (Auto) 11.9 H Eos % (Auto) 1.5 Baso % (Auto) 0.6 Lymph # (Auto) 1.3 [place] # (Auto) 0.8 Eos # (Auto) 0.1 Baso # (Auto) 0.0 Abs Immat Gran (auto) 0.02 Absolute Neuts (auto) 4.3 Absolute Nucleated RBC 0.000 Nucleated RBC % (auto) 0.0 Sodium 142 Potassium 4.1 Chloride 103 Carbon Dioxide 30 H Anion Gap 13 BUN 66 H Creatinine 1.99 H Estim Creat Clear Calc 26.3 Estimated GFR 24 POC Glucose 77 Random Glucose 168 H Calcium 9.4 Magnesium 2.7 H Total Bilirubin 0.5 Direct Bilirubin 0.2 AST 20 ALT 15 Alkaline Phosphatase 135 H C-Reactive Protein 0.54 H Total Protein 7.2 Albumin 4.1 Urine Color Yellow Urine Appearance Clear Urine pH 5.5 Ur Specific [place] 1.015 Urine Protein Negative Urine Glucose (UA) >=1000 H Urine Ketones Negative Urine Blood Negative Urine Nitrite Negative Ur Leukocyte Esterase Negative Urine RBC 0-2 Urine WBC 0-5 Ur Squamous Epith Cells 0-2 Urine Bacteria None Seen Hyaline Casts 0-2 05/26/24 05/26/24 11:27 16:07 WBC RBC Hgb Hct MCV MCH MCHC RDW Plt Count MPV Immature Gran % (Auto) Neut % (Auto) Lymph % (Auto) [place] % (Auto) Eos % (Auto) Baso % (Auto) Lymph # (Auto) [place] # (Auto) Eos # (Auto) Baso # (Auto) Abs Immat Gran (auto) Absolute Neuts (auto) Absolute Nucleated RBC Nucleated RBC % (auto) Sodium Potassium Chloride Carbon Dioxide Anion Gap BUN Creatinine Estim Creat Clear Calc Estimated GFR POC Glucose 156 H 90 Random Glucose Calcium Magnesium Total Bilirubin Direct Bilirubin AST ALT Alkaline Phosphatase C-Reactive Protein Total Protein Albumin Urine Color Urine Appearance Urine pH Ur Specific [place] Urine Protein Urine Glucose (UA) Urine Ketones Urine Blood Urine Nitrite Ur Leukocyte Esterase Urine RBC Urine WBC Ur Squamous Epith Cells Urine Bacteria Hyaline Casts Discharge Plan Discharge Patient Disposition: Home, Self-Care Discharge Diagnosis: Transient monocular vision loss, left eye Referrals: Physician,Unknown J [Primary Care Provider] - 1 Week Discharge Medications: New aspirin 81 mg capsule 81 mg PO Q2D Qty: 30 0RF Continued atorvastatin 40 mg tablet 40 mg PO Q48H torsemide 20 mg tablet 40 mg PO BID metoprolol succinate 50 mg tablet extended release 24 hr 50 mg PO DAILY glipizide 10 mg tablet extended release 24hr 20 mg PO DAILY levothyroxine 100 mcg tablet 100 mcg PO DAILY@0600 spironolactone 50 mg tablet 50 mg PO DAILY Eliquis 5 mg tablet 5 mg PO BID dapagliflozin propanediol [Farxiga] 10 mg tablet 10 mg PO DAILY Pulmicort Flexhaler 180 mcg/actuation aerosol powdr breath activated 2 inh inhalation BID acetaminophen 500 mg Tablet 500 mg PO BEDTIME acetaminophen 650 mg Tablet Extended Release 650 mg PO DAILY Discharge Orders: Discharge Order (Routine); Ordered 05/26/24 Ordered By: Valarie Mosher Activity on Discharge: As tolerated Stand Alone Forms: Patient Portal Discharge page Print Language: [place] Care Plan Goals: see below Health Concerns: Transient monocular vision loss likely due to probable embolus in the ophthalmic artery Plan of Treatment: Start taking baby aspirin every other day Tight control of blood sugar Follow-up with PCP Assessment: See discharge summary
== END 2024-05-26 17:10 | disposition home or self-care (01) ==
LOC: HO.ED 05-26 00:24 → HO.EDOVER 05-26 03:36 → HO.S3 05-26 04:20
PROVIDERS: Physician Assistant; Admitting Provider Internal Medicine; Emergency Provider Internal Medicine; Visit Provider Physician Assistant Medical
DX: G45.3 Amaurosis fugax (principal); I48.91 Unspecified atrial fibrillation; E11.22 Type 2 diabetes mellitus with diabetic chronic kidney disease; I13.0 Hypertensive heart and chronic kidney disease with heart failure and stage 1 through stage 4 chronic kidney disease, or unspecified chronic kidney disease; N18.4 Chronic kidney disease, stage 4 (severe); I50.9 Heart failure, unspecified; R51.9 Headache, unspecified; R42 Dizziness and giddiness; G47.33 Obstructive sleep apnea (adult) (pediatric); Z95.0 Presence of cardiac pacemaker; Z99.89 Dependence on other enabling machines and devices; Z79.899 Other long term (current) drug therapy; Z79.01 Long term (current) use of anticoagulants
CPT/HCPCS: 36415; 70450; 80048; 80076; 81001; 82947; 83735; 85025; 86140; 93005; 93306; 93880; 99221; 99285; Q9957

== ENCOUNTER 2024-05-26 03:28 | Outpatient (BNV) | payer OTHER, SELFPAY | END 2024-05-26 07:00 | PROVIDERS: Admitting Provider Internal Medicine; Emergency Provider Internal Medicine; Visit Provider Internal Medicine Cardiovascular Disease | DX: Z95.3 Presence of xenogenic heart valve (principal); I36.1 Nonrheumatic tricuspid (valve) insufficiency; I34.81 Nonrheumatic mitral (valve) annulus calcification; I51.89 Other ill-defined heart diseases | CPT/HCPCS: 93306 ==

== ENCOUNTER → 2024-05-26 03:28 | Outpatient (BNV) | payer OTHER, SELFPAY | PROVIDERS: Admitting Provider Internal Medicine; Emergency Provider Internal Medicine; Visit Provider Internal Medicine | DX: G45.3 Amaurosis fugax (principal) | CPT/HCPCS: 99239; 99499 ==

== ENCOUNTER → 2024-05-26 03:28 | Outpatient (BNV) | payer OTHER, SELFPAY | PROVIDERS: Admitting Provider Internal Medicine; Emergency Provider Internal Medicine; Visit Provider Psychiatry & Neurology Neurology | DX: G45.3 Amaurosis fugax (principal) | CPT/HCPCS: 99222 ==

== ENCOUNTER 2024-07-31 09:11 | Outpatient (REF) | payer MEDICARE, SELFPAY ==
[2024-07-31 09:16] VITALS: BP 139/63; PULSE 88; RESP 16; TEMP 36.2; O2SAT 92; BMI 41.6
== END 2024-07-31 09:12 | disposition home or self-care (01) ==
LOC: HO.MS 09:11
PROVIDERS: Visit Provider Ophthalmology
PROC: (CPT 66821; principal; 2024-07-31 12:40)
DX: H26.492 Other secondary cataract, left eye (principal)
CPT/HCPCS: 66821